=== PATIENT | female | born 1970 | race Two or more races ===

== ENCOUNTER 2017-07-03 18:52 | Emergency (ER) | payer MEDICAID ==
[~2017-07-03] VITALS: Ht 162.6 cm; Wt 68.0 kg
--- NOTE | 2017-07-03 19:24 | NUR ---
PATIENT CAME IN TO ER FOR MIDSTERNAL CHEST PAIN THAT RADIATES TO THE BACK X 1 WEEK. PATIENT SEEN BY ER MD.IV STARTED BLOOD DRAWN AND SENT TO LAB.
--- NOTE | 2017-07-03 19:33 | NUR ---
PATIENT WENT TO CT VIA WC.
--- NOTE | 2017-07-03 19:47 | NUR ---
PATIENT RETURNED FROM CT.
[2017-07-03 19:54] LABS: BASOPHILS % (AUTO) 0.4 % (0.0-2.0); EOSINOPHILS # (AUTO) 0.1 /CMM (0.0-0.7); EOSINOPHILS % (AUTO) 0.7 % (0.0-6.0); HEMATOCRIT 35 % (33-45); HEMOGLOBIN 11.6 g/dL (11.5-14.8); LYMPHOCYTES # (AUTO) 2.4 /CMM (0.8-4.8); LYMPHOCYTES % (AUTO) 23.7 % (20.0-44.0); MEAN CORPUSCULAR HEMOGLOBIN 28 PG (26.0-33.0); MEAN CORPUSCULAR HGB CONC 33 g/dl (31.0-36.0); MEAN CORPUSCULAR VOLUME 85 fL (82-100); MONOCYTES # (AUTO) 0.9 /CMM (0.1-1.30); MONOCYTES % (AUTO) 8.6 % (2.0-12.0); NEUTROPHILS # (AUTO) 6.6 /CMM (1.8-8.9); NEUTROPHILS % (AUTO) 66.6 % (43.0-81.0); PLATELET COUNT (AUTO) 302 /CMM (150-450); RDW COEFFICIENT OF VARIATION 12.6 (11.5-15.0); RED BLOOD CELL COUNT(AUTO) 4.13 MIL/uL (4.0-5.2)
[2017-07-03] MEDS ORDERED: LIDOCAINE VISCOUS 2% UD 15 ML UDC ONE (19:55)
[2017-07-03] MEDS ORDERED: MAG HYDROX/AL HYDROX/SIMETH 30 ML UDC ONE (19:55)
[2017-07-03 19:56] LABS: CALCIUM, SERUM 9.2 mg/dL (8.5-10.1); CREATININE 0.9 mg/dL (0.6-1.3); POTASSIUM 3.5 mmol/L (3.5-5.1)
[2017-07-03] MEDS ORDERED: MAG HYDROX/AL HYDROX/SIMETH 30 ML UDC PO ONE (20:00)
[2017-07-03] MEDS ORDERED: LIDOCAINE 2% JEL UROJET 10 ML MM ONE (20:00)
--- NOTE | 2017-07-03 20:08 | NUR ---
pt ambulated to the bathroom with a steady gait.
--- NOTE | 2017-07-03 20:11 | NUR ---
pt returned to bed #7.
--- NOTE | 2017-07-03 20:14 | NUR ---
Jeremias de los santos in ED - 07/03/17 at 2015 by [email or web address] patient medicated with lidocaine viscus 10 ml and maalox 30 ml
--- NOTE | 2017-07-03 20:29 | NUR ---
SALINE LOCK REMOVED WITH NEEDLE INTACT.
--- NOTE | 2017-07-03 20:35 | NUR ---
Patient discharged to home in stable condition. Written and verbal after care instructions given. Patient verbalizes understanding of instruction and RX. VSS. Respiration even and unlabored.Patient ambulated out with a steady gait.
[2017-07-03 20:38] VITALS: BP 138/75
== END 2017-07-03 20:39 | disposition home or self-care (01) ==
LOC: ER 18:54
DX: M62.830 Muscle spasm of back (principal); Z90.710 Acquired absence of both cervix and uterus
CPT/HCPCS: 36415; 71010; 72074; 80048; 85025; 93005 ×2; 99285; A4606; Z7610

== ENCOUNTER 2019-12-04 23:08 | Inpatient (IN) | payer MEDICAID ==
[~2019-12-04] VITALS: Ht 167.6 cm; Wt 77.1 kg
--- NOTE | 2019-12-04 23:15 | NUR ---
PT CAME TO THE ED C/O R SIDED HEADACHE X 3 DAYS. PT STATED "MY EYES FEEL WEIRD AND MY TONGUE IS NUMB STARTING AT 12 NOON TODAY." PARTIAL FACIAL WEAKNESS NOTED. NO DRIFTS ON UPPER AND LOWER EXTREMITIES. NO NEUROLOGICAL DEFICITS. PT AMBULATORY W/ STEADY GAIT. PT CONNECTED TO THE MONITOR AND POX
[2019-12-04] MEDS ORDERED: IOHEXOL-350 100 ML VIAL IV ONE (23:26)
[2019-12-04] MEDS ORDERED: IV NS 0.9% 250 ML IV ONE (23:27)
--- NOTE | 2019-12-04 23:27 | NUR ---
BLOOD DRAWN AND SENT TO LAB
--- NOTE | 2019-12-04 23:30 | NUR ---
PT TAKEN TO CT
[2019-12-04 23:34] LABS: BASOPHILS # (AUTO) 0.1 /CMM (0.0-0.2); BASOPHILS % (AUTO) 0.9 % (0.0-2.0); EOSINOPHILS % (AUTO) 2.3 % (0.0-6.0); HEMATOCRIT 37 % (33-45); HEMOGLOBIN 12.6 g/dL (11.5-14.8); LYMPHOCYTES # (AUTO) 2.7 /CMM (0.8-4.8); LYMPHOCYTES % (AUTO) 27.6 % (20.0-44.0); MEAN CORPUSCULAR HGB CONC 34 g/dl (31.0-36.0); MEAN CORPUSCULAR VOLUME 84 fL (82-100); MONOCYTES # (AUTO) 1.1 /CMM (0.1-1.30); MONOCYTES % (AUTO) 11.2 % (2.0-12.0); NEUTROPHILS # (AUTO) 5.7 /CMM (1.8-8.9); PLATELET COUNT (AUTO) 328 /CMM (150-450); RED BLOOD CELL COUNT(AUTO) 4.43 MIL/uL (4.0-5.2); WHITE BLOOD COUNT (AUTO) 9.8 K/uL (4.3-11.0)
--- NOTE | 2019-12-04 23:44 | NUR ---
PT BACK FROM CT
[2019-12-04 23:45] LABS: CALCIUM, SERUM 8.8 mg/dL (8.5-10.1); CARBON DIOXIDE 32 mmol/L (21-32); CHLORIDE 104 mmol/L (98-107); CREATININE 1.2 mg/dL (0.6-1.3); GLUCOSE 104 mg/dL (74-106); POTASSIUM 4.2 mmol/L (3.5-5.1); SODIUM SERUM 141 mmol/L (136-145); UREA NITROGEN, BLOOD 17 mg/dL (7-18)
--- NOTE | 2019-12-04 23:48 | NUR ---
PATIENT'S SWAB SAMPLE COLLECTED AND SENT TO THE LAB.
--- NOTE | 2019-12-04 23:50 | NUR ---
DR. REYES ON THE PHONE WITH DR. SOLOMON, RADIOLOGIST
[2019-12-04 23:59] LABS: CHOLESTEROL 229 mg/dL (<200); HDL CHOLESTEROL 72 mg/dL (40-60); LDL 144 mg/dL (0-99); TRIGLYCERIDES 180 mg/dL (30-150)
--- NOTE | 2019-12-05 00:14 | NUR ---
SPOKE WITH ANIMAL REHABILITATOR REGARDING CLINICAL INFORMATION, WAITING FOR MD TO MD FOR POSSIBLE TRANSFER
--- NOTE | 2019-12-05 00:45 | NUR ---
DR. REYES ON THE PHONE WITH DR. KIM Addendum: 12/05/19 at 0213 by LASHONDA FROM [facility]
--- NOTE | 2019-12-05 01:07 | NUR ---
PT AAOX4, NO MEDICAL COMPLAINTS AT THIS TIME, NO ACUTE DISTRESS NOTED.WILL CONTINUE TO MONITOR ACCORDINGLY
--- NOTE | 2019-12-05 02:00 | NUR ---
PER FRESH FOODS TECHNICIAN ALLISON, NO BED AVAILABLE AT [facility] UNTIL AM. AUTHORIZATION TO ADMIT PT AT [facility]
--- NOTE | 2019-12-05 02:01 | NUR ---
ATTEMPTED TO CONTACT DR. MIRAMONTES (ARMORED TRANSPORT SERVICE MANAGER NEURO) FOR CONSULT LEFT MESSAGE TO RETURN CALL
--- NOTE | 2019-12-05 02:05 | NUR ---
CALLED NURSING SUP FOR BED
--- NOTE | 2019-12-05 02:08 | NUR ---
DR REYES ON THE PHONE W/ LITZY PICK UP OPERATOR
[2019-12-05] MEDS ORDERED: ASPIRIN 81 MG TAB.CHEW ONE (02:12)
[2019-12-05] MEDS ORDERED: hydrALAZINE HCL IV 20 MG VIAL IV PRN (02:30)
[2019-12-05] MEDS ORDERED: MAG HYDROX/AL HYDROX/SIMETH 30 ML UDC PO PRN (02:30)
[2019-12-05] MEDS ORDERED: ACETAMINOPHEN 325 MG TABLET PO PRN (02:30)
[2019-12-05] MEDS ORDERED: MORPHINE SULFATE INJ 2 MG/ML DISP.SYRIN IV PRN (02:30)
[2019-12-05] MEDS ORDERED: MAGNESIUM HYDROXIDE 30 ML UDC PO PRN (02:30)
[2019-12-05] MEDS ORDERED: ONDANSETRON HCL/PF 4 MG/2 ML VIAL IVP PRN (02:30)
[2019-12-05] MEDS ORDERED: ASPIRIN 81 MG TAB.CHEW PO ONE (02:30)
[2019-12-05] MEDS ORDERED: HYDROCODONE/APAP 5/325MG 1 EACH TABLET PO PRN (02:30)
--- NOTE | 2019-12-05 02:43 | NUR ---
BED ASSIGNMENT [id number]
--- NOTE | 2019-12-05 03:07 | NUR ---
NURSE WILL CALL BACK FOR REPORT
--- NOTE | 2019-12-05 03:20 | NUR ---
CLERK GUIDE NOTES PATIENT ARRIVED TO UNIT VIA [facility], VIA ACLS PROTOCOLS. PATIENT ALERT AND ORIENTED X 4, KINYARWANDA SPEAKING. PATIENT ON ROOM AIR, NO SIGNS OF SOB PRESENT, NO SIGNS OF RESPIRATORY DISTRESS AND WITH EVEN NON-LABORED BREATHING. ON TONNAGE COMPILATION CLERK, SINUS DARIA, 58. PATIENT UNSTEADY GAIT, WITH STANDBY ASSISTANCE. PATIENT SKIN INTACT, WARM AND DRY TO TOUCH. PATIENT IV ACCESS INTACT AND PATENT ON LEFT FOREARM, 20G SALINE LOCK. SAFETY PRECAUTIONS IN PLACE WITH BED LOCKED, BILATERAL SIDE RAILS UP, BED IN THE LOWEST POSITION AND CALL LIGHT WITHIN EASY REACH. WILL CONTINUE TO MONITOR PATIENT.
--- NOTE | 2019-12-05 03:41 | NUR ---
PT TRANSFERRED TO ROOM IN STABLE CONDITION
[2019-12-05 04:00] VITALS: BP 138/89
--- NOTE | 2019-12-05 04:15 | NUR ---
CHALK EXTRUDING MACHINE OPERATOR NOTES NOTIFIED LANI JACKMAN NP, ON PATIENT'S NIHSS SCORE AND SWALLOW SCREEN. AWARE OF PATIENT CONDITION. ALSO NOTIFIED THAT PATIENT FORGOT TO MENTION PAST MEDICAL HISTORY OF [place] IN 2006. WILL CONTINUE TO MONITOR PATIENT.
[2019-12-05] MEDS ORDERED: methylPREDNISolone SOD SUCC 125 MG/2ML VIAL IV ONE (04:30)
[2019-12-05] MEDS ORDERED: IV D5/0.45 NACL 1,000 ML IV PRN (04:30)
[2019-12-05 05:35] VITALS: BP 138/89
--- NOTE | 2019-12-05 06:56 | NUR ---
3D MODELER NOTES PATIENT IN BED SLEEPING EASILY AWAKEN BY NAME. ON ROOM AIR WITH NO SIGNS OF SOB, NO SIGNS OF RESPIRATORY DISTRESS AND WITH EVEN NON-LABORED BREATHING. ON MECHANICS SUPERVISOR, 60'S. PATIENT IV ACCESS PATENT AND INTACT ON LEFT FOREARM, 20 GAUGE, INFUSING D5 1/2 NS AT 75 mL/hr. SKIN WARM AND DRY TO TOUCH. PROVIDED COMFORT MEASURES TO PATIENT. SAFETY PRECAUTIONS IN PLACE WITH BED IN THE LOWEST POSITION, BED LOCKED, BILATERAL SIDE RAILS UP, AND CALL LIGHT WITHIN EASY REACH OF PATIENT. WILL ENDORSE PLAN OF CARE TO UPCOMING DAYSHIFT NURSE.
[2019-12-05 07:08] LABS: BASOPHILS # (AUTO) 0.1 /CMM (0.0-0.2); BASOPHILS % (AUTO) 0.8 % (0.0-2.0); EOSINOPHILS % (AUTO) 2.5 % (0.0-6.0); HEMATOCRIT 36 % (33-45); HEMOGLOBIN 11.9 g/dL (11.5-14.8); LYMPHOCYTES # (AUTO) 1.8 /CMM (0.8-4.8); LYMPHOCYTES % (AUTO) 25.7 % (20.0-44.0); MEAN CORPUSCULAR HGB CONC 33 g/dl (31.0-36.0); MEAN CORPUSCULAR VOLUME 84 fL (82-100); MONOCYTES # (AUTO) 0.4 /CMM (0.1-1.30); MONOCYTES % (AUTO) 5.9 % (2.0-12.0); NEUTROPHILS # (AUTO) 4.6 /CMM (1.8-8.9); NEUTROPHILS % (AUTO) 65.1 % (43.0-81.0); PLATELET COUNT (AUTO) 301 /CMM (150-450); RED BLOOD CELL COUNT(AUTO) 4.27 MIL/uL (4.0-5.2); WHITE BLOOD COUNT (AUTO) 7.1 K/uL (4.3-11.0)
[2019-12-05 07:22] LABS: ALBUMIN 3.7 g/dL (3.4-5.0); BILIRUBIN,TOTAL 0.2 mg/dL (0.2-1.0); CALCIUM, SERUM 8.4 mg/dL (8.5-10.1); CREATININE 0.9 mg/dL (0.6-1.3); POTASSIUM 3.9 mmol/L (3.5-5.1); TOTAL PROTEIN, SERUM 7.3 g/dL (6.4-8.2)
[2019-12-05 07:30] LABS: THYROID STIMULATING HORMONE 12.754 uIU/mL (0.358-3.74)
--- NOTE | 2019-12-05 07:45 | NUR ---
TELE/RN NOTE THE PATIENT IS RECEIVED IN BED. PATIENT IS ALERT AND ORIENTED X4. IN ROOM AIR AND DENIES SOB. RESPIRATION REGULAR AND UNLABORED. DENIES PAIN. THE PATIENT IS NOTED TO HAVE FACIAL ASYMMETRY MANIFESTED BY LEFT CORNER OF THE MOUTH DROPPING AND TONGUE SHIFTING TOWARD LEFT. NO OTHER DEFICIENCIES NOTED. LFA G 20 PATENT AND D1/2 NS INFUSING AT 75ML/HR. NO S/S INFILTRATION NOTED. BED LOW AND LOCKED. SIDE RAILS UP X3. CALL LIGHT WITHIN REACH. WILL CONTINUE TO MONTITOR.
[2019-12-05 08:00] VITALS: BP 131/77
[2019-12-05] MEDS: ASPIRIN 81 MG TAB.CHEW PO SCH (09:00)
--- NOTE | 2019-12-05 12:03 | NUR ---
TELE/RN NOTE THE PATIENT WAS SEEN AND EXAMINED BY DR GOLDEN WITH NEW ORDER CARDIAC DIET. MD WAS MADE AWARE THAT THE PATIENT FAILED NURSING SWALLOW EVAL AND WE ARE WAITING FOR ST EVAL, HOWEVER, MD STILL ORDERED DIET. THE ORDER IS READ BACK, VERIFIED. NOTED AND CARRIED OUT.
[2019-12-05] MEDS: LEVOTHYROXINE SODIUM 25 MCG TABLET PO SCH (15:24)
[2019-12-05 16:00] VITALS: BP 132/75
--- NOTE | 2019-12-05 18:02 | NUR ---
TELE/RN NOTE THE PATIENT ALERT AND ORIENTED X4. IN ROOM AIR AND SATURATION IS AT 100%. DENIES SOB. RESPIRATION REGULAR AND UNLABORED. DENIES PAIN. THE PATIENT IS ON EXTERNAL TELE BOX AND READING IS SR 75. THE PATIENT STILL NOTED WITH DROPPING ON THE LEFT CORNER OF THE MOUTH AND TONGUE. SPEECH CLEAR. NO DIFFICULTY IN SWALLOWING. NO COUGHING OR OTHER SIGNS OF ASPIRATION NOTED. WAITING TO BE SEEN BY DR MIRAMONTES. PER DR GOLDEN THE PATIENT WILL BE SEEN BY DR MIRAMONTES TODAY. LFA G 20 PATENT AND D5 1/2 NS INFUSING AT 75ML/HR AND NO S/S INFILTRATION NOTED. BED LOW AND LOCKED. SIDE RAILS UP X3. CALL LIGHT WITHIN REACH. WILL ENDORSE TO PILOT CONTROL OPERATOR HELPER.
--- NOTE | 2019-12-05 19:31 | NUR ---
TAWER NOTES PATIENT RECEIVED IN BED LAYING COMFORTABLY. ALERT AND ORIENTED X 4. ON ROOM AIR WITH NO SIGNS OF SOB, NO SIGNS OF RESPIRATORY DISTRESS AT THIS TIME, AND WITH EVEN NON-LABORED BREATHING. ON NUCLEAR UNIT OPERATOR, SINUS RHYTHM, 70'S. PATIENT SKIN WARM AND DRY TO TOUCH, IV ACCESS INTACT AND PATENT, WITH NO SIGNS OF INFILTRATION. SAFETY PRECAUTIONS IN PLACE WITH BED LOCKED, BED IN THE LOWEST POSITION, BILATERAL SIDE RAILS UP, AND CALL LIGHT WITHIN EASY REACH OF PATIENT. WILL CONTINUE TO MONITOR PATIENT.
[2019-12-05 20:00] VITALS: BP 132/75
[2019-12-05] MEDS ORDERED: SIMVASTATIN 20 MG TABLET PO SCH (22:00)
[2019-12-06] VITALS: BP 136/67
[2019-12-06 04:00] VITALS: BP 144/89
--- NOTE | 2019-12-06 06:34 | NUR ---
GASTROINTESTINAL TECHNICIAN NOTES PATIENT IN BED SLEEPING EASILY AWAKEN BY NAME AND LIGHT TOUCH. ON ROOM AIR WITH NO SIGNS OF RESPIRATORY DISTRESS, NO SIGNS OF SOB, AND WITH EVEN NON-LABORED BREATHING. PATIENT ON DYE RANGE OPERATOR CLOTH, 59. PATIENT SKIN KEPT CLEAN AND DRY. MILD DROOPING ON THE LEFT SIDE, NO DIFFICULTY SPEAKING AT THIS TIME. ASPIRATION PRECAUTIONS IN PLACE. IV ACCESS IN PLACE, INTACT AND PATENT. SAFETY PRECAUTIONS IN PLACE WITH BED LOCKED, BED IN THE LOWEST POSITION, BILATERAL SIDE RAILS UP, AND CALL LIGHT WITHIN EASY REACH OF THE PATIENT. WILL ENDORSE PLAN OF CARE TO UPCOMING DAYSHIFT NURSE.
[2019-12-06 07:16] LABS: CALCIUM, SERUM 8.9 mg/dL (8.5-10.1); CREATININE 0.9 mg/dL (0.6-1.3); MAGNESIUM 2.1 mg/dL (1.8-2.4); PHOSPHORUS 3.3 mg/dL (2.5-4.9); POTASSIUM 3.6 mmol/L (3.5-5.1)
[2019-12-06 07:21] LABS: BASOPHILS % (AUTO) 0.1 % (0.0-2.0); EOSINOPHILS % (AUTO) 0.3 % (0.0-6.0); HEMATOCRIT 36 % (33-45); HEMOGLOBIN 11.9 g/dL (11.5-14.8); LYMPHOCYTES # (AUTO) 2.5 /CMM (0.8-4.8); LYMPHOCYTES % (AUTO) 18.3 % (20.0-44.0); MEAN CORPUSCULAR HGB CONC 33 g/dl (31.0-36.0); MEAN CORPUSCULAR VOLUME 84 fL (82-100); MONOCYTES # (AUTO) 0.9 /CMM (0.1-1.30); MONOCYTES % (AUTO) 6.8 % (2.0-12.0); NEUTROPHILS % (AUTO) 74.5 % (43.0-81.0); PLATELET COUNT (AUTO) 324 /CMM (150-450); WHITE BLOOD COUNT (AUTO) 13.5 K/uL (4.3-11.0)
[2019-12-06 07:30] VITALS: BP 120/73
--- NOTE | 2019-12-06 07:30 | NUR ---
TELE/RN NOTE RECEIVED THE PATIENT IN BED. PATIENT IS ALERT AND ORIENTED X4. DENIES PAIN. IN ROOM AIR AND DENIES SOB. RESPIRATION REGULAR AND UNLABORED. EXTERNAL TELE BOX READING IS SR 60. THE PATIENT IN NO APPARENT DISTRESS. DROOPING IN THE LEFT CORNER OF THE MOUTH STILL NOTED. NO OTHER DEFICIENCIES NOTED. SPEECH CLEAR. LFA G 22 PATENT AND SALINE LOCKED. BED LOW AND LOCKED. SIDE RAILS UP X2. CALL LIGHT WITHIN REACH. WILL CONTINUE TO MONITOR.
[2019-12-06] MEDS: ASPIRIN 81 MG TAB.CHEW PO SCH (09:43)
[2019-12-06] MEDS: LEVOTHYROXINE SODIUM 25 MCG TABLET PO SCH (09:43)
--- NOTE | 2019-12-06 11:38 | NUR ---
DAMARI met with the 49 year old female pt who was admitted to [facility] for having a stroke. Pt stated that this was her first stroke and her drove her to the hospital when it happened. SW and pt discussed that another option for a moment like this would be to call 911. DAMARI conducted the Post Stroke Depression assessment with the pt and she scored 1. Pt answered "Not at all" for a majority of the questions. Pt stated, "I feel great. I feel motivated to live my life and go back to work. I want to live my life better." SW and pt discussed some changes that the pt can incorporate into her life such as eating healthier and exercising more. Pt stated that she is motivated to make these changes for her and for her and daughters. Pt states that her family is very supportive and will be helping her. SW provided the pt with some materials on post stroke depression even though the pt stated that she will not be needing them.
--- NOTE | 2019-12-06 14:10 | NUR ---
TELE/RN NOTE THE PATIENT A/O X4. IN ROOM AIR AND SATURATION IS AT 98%. DENIES SOB. RESPIRATION REGULAR AND UNLABORED. DENIES PAIN. THE PATIENT IS PROVIDED DISCHARGE EDUCATION AND SHE VERBALIZED UNDERSTANDING. THE PATIENT IS HANDED THE PRESCRIPTION AND THE COPY IS SAVED IN THE CHART. THE PATIENT PATIENT LEFT THE HOSPITAL IN STABLE CONDITION WITH ON A PRIVATE CAR.
== END 2019-12-06 14:10 | disposition home or self-care (01) | DRG 48 ==
LOC: ER 23:14 → TELE 12-05 02:50
DX: G51.0 Bell's palsy (principal); E03.9 Hypothyroidism, unspecified; E66.9 Obesity, unspecified; Z68.27 Body mass index [BMI] 27.0-27.9, adult; E04.9 Nontoxic goiter, unspecified; E78.5 Hyperlipidemia, unspecified; R20.0 Anesthesia of skin; R51 Headache; H53.8 Other visual disturbances
CPT/HCPCS: 36415; 70450-TC; 70496-TC; 70498-TC; 71045-TC; 80048-TC; 80053-TC; 80061-TC; 82962-TC; 83735-TC; 84100-TC; 84443-TC; 84484-TC; 84702-TC; 85025-TC; 85730-TC; 87081-TC; 92611-TC; 93308-TC; G0378; J2930; J3490; J7050; Q9967; U0003

== ENCOUNTER 2021-04-26 19:34 | Emergency (ER) | payer MEDICAID ==
[~2021-04-26] VITALS: Ht 170.2 cm; Wt 77.6 kg
[2021-04-26] MEDS ORDERED: ASPIRIN 325 MG TABLET PO ONE (20:00)
--- NOTE | 2021-04-26 20:00 | NUR ---
PATIENT BIBSELF C/O LEFT SIDE CP RADITING TO NECK, SHARP STABBING 01/27 AND SOB STARTED LAST NIGHT. PATIENT IS A/OX 4, RR EVEN AND UNLABORED, PT CONNECTED TO SEQUENCING MACHINE OPERATOR AND POX
[2021-04-26] MEDS ORDERED: ASPIRIN 325 MG TABLET ONE (20:01)
[2021-04-26 20:18] LABS: BASOPHILS # (AUTO) 0.1 K/uL (0.0-0.2); BASOPHILS % (AUTO) 1.2 % (0.0-2.0); EOSINOPHILS % (AUTO) 0.8 % (0.0-6.0); HEMATOCRIT 37 % (33-45); HEMOGLOBIN 12.2 g/dL (11.5-14.8); LYMPHOCYTES # (AUTO) 2.5 K/uL (0.8-4.8); LYMPHOCYTES % (AUTO) 30.9 % (20.0-44.0); MEAN CORPUSCULAR HGB CONC 33 g/dl (31.0-36.0); MEAN CORPUSCULAR VOLUME 84 fL (82-100); MONOCYTES # (AUTO) 0.8 K/uL (0.1-1.30); MONOCYTES % (AUTO) 10.1 % (2.0-12.0); NEUTROPHILS # (AUTO) 4.6 K/uL (1.8-8.9); PLATELET COUNT (AUTO) 293 K/uL (150-450)
[2021-04-26 20:31] LABS: CALCIUM, SERUM 8.9 mg/dL (8.5-10.1); CARBON DIOXIDE 25 mmol/L (21-32); CHLORIDE 104 mmol/L (98-107); CREATININE 0.9 mg/dL (0.6-1.3); GLUCOSE 96 mg/dL (74-106); POTASSIUM 3.6 mmol/L (3.5-5.1); SODIUM SERUM 139 mmol/L (136-145); UREA NITROGEN, BLOOD 14 mg/dL (7-18)
[2021-04-26] MEDS ORDERED: KETOROLAC TROMETHAMINE 15 MG/ML VIAL ONE (20:57)
[2021-04-26] MEDS ORDERED: CYCLOBENZAPRINE 10 MG TABLET ONE (20:57)
[2021-04-26] MEDS ORDERED: KETOROLAC TROMETHAMINE INJ 30 MG/ML VIAL IV ONE (21:00)
[2021-04-26] MEDS ORDERED: CYCLOBENZAPRINE 10 MG TABLET PO ONE (21:00)
[2021-04-26] MEDS ORDERED: CYCL5TAB PO (21:30)
[2021-04-26] MEDS ORDERED: IBUP-1957 PO (21:30)
--- NOTE | 2021-04-26 22:03 | NUR ---
Patient discharged to home in stable condition. Rx and Written and verbal after care instructions given. Patient verbalizes understanding of instruction.
[2021-04-26 22:06] VITALS: BP 131/70
== END 2021-04-26 22:06 | disposition home or self-care (01) ==
LOC: ER 19:47
DX: R07.89 Other chest pain (principal); E03.9 Hypothyroidism, unspecified; Z98.890 Other specified postprocedural states; Z79.899 Other long term (current) drug therapy
CPT/HCPCS: 36415; 71045; 80048; 83880; 84484; 85025; 93005 ×2; 96374; 99285; J1885

== ENCOUNTER 2023-09-12 13:40 | Emergency (ER) | payer MEDICAID, OTHER ==
[~2023-09-12] VITALS: Ht 167.6 cm; Wt 77.1 kg
[~2023-09-12 13:40] MED LIST: CYCL5TAB PO; IBUP-1957 PO
[2023-09-12 14:48] LABS: BASOPHILS # (AUTO) 0.1 K/uL (0.0-0.2); BASOPHILS % (AUTO) 0.9 % (0.0-2.0); EOSINOPHILS # (AUTO) 0.1 K/uL (0.0-0.7); EOSINOPHILS % (AUTO) 1.3 % (0.0-6.0); HEMATOCRIT 36 % (33-45); LYMPHOCYTES # (AUTO) 1.9 K/uL (0.8-4.8); LYMPHOCYTES % (AUTO) 31.1 % (20.0-44.0); MEAN CORPUSCULAR HEMOGLOBIN 27 PG (26.0-33.0); MEAN CORPUSCULAR HGB CONC 33 g/dl (31.0-36.0); MEAN CORPUSCULAR VOLUME 82 fL (82-100); MONOCYTES # (AUTO) 0.6 K/uL (0.1-1.30); MONOCYTES % (AUTO) 9.9 % (2.0-12.0); NEUTROPHILS # (AUTO) 3.5 K/uL (1.8-8.9); NEUTROPHILS % (AUTO) 56.8 % (43.0-81.0); PLATELET COUNT (AUTO) 333 K/uL (150-450); RED CELL DISTRIBUTION WIDTH 13.7 % (11.5-15.0); WHITE BLOOD COUNT (AUTO) 6.2 K/uL (4.3-11.0)
[2023-09-12 15:00] LABS: CALCIUM, SERUM 9.1 mg/dL (8.5-10.1); CARBON DIOXIDE 30 mmol/L (21-32); CHLORIDE 102 mmol/L (98-107); CREATININE 0.7 mg/dL (0.6-1.3); GLUCOSE 88 mg/dL (74-106); SODIUM SERUM 140 mmol/L (136-145); UREA NITROGEN, BLOOD 11 mg/dL (7-18)
[2023-09-12 15:05] LABS: ALANINE AMINOTRANSFERASE 44 U/L (12-78); ALBUMIN 3.6 g/dL (3.4-5.0); ALKALINE PHOSPHATASE 67 U/L (46-116); ASPARTATE AMINOTRANSFERASE 22 U/L (15-37); BILIRUBIN,DIRECT 0.1 mg/dL (0.0-0.2); BILIRUBIN,TOTAL 0.6 mg/dL (0.2-1.0); TOTAL PROTEIN, SERUM 7.3 g/dL (6.4-8.2)
[2023-09-12] MEDS ORDERED: CARI350T PO (16:03)
[2023-09-12 16:24] VITALS: BP 134/81; TEMP 97.9; O2SAT 99
== END 2023-09-12 16:24 | disposition home or self-care (01) ==
LOC: ER 13:40
DX: R20.2 Paresthesia of skin (principal); E03.9 Hypothyroidism, unspecified; Z90.710 Acquired absence of both cervix and uterus
CPT/HCPCS: 36415; 70450-TC; 80048-TC; 80076-TC; 84484-TC; 85025-TC